=== PATIENT | female | born 1940 | race Caucasian/White ===

== ENCOUNTER → 2018-05-26 | Outpatient (CLI) | payer OTHER ==
[~2018-05-26] MED LIST: ASPIRIN325 PO; B-100 COMPLEX1 EAC1 PO; CELEXA 20 MG TA20 MG PO; HYDROCODON-ACE1 EAC7 PO; NORVASC 5 MG TAB5 MG PO; PRAVACHOL80 MG PO; PROZAC20 MG PO; TRAMADOL 50 MG50 MG PO
== END ==
LOC: NUC 08:43
DX: M47.26 Other spondylosis with radiculopathy, lumbar region (principal); M51.17 Intervertebral disc disorders with radiculopathy, lumbosacral region; M48.07 Spinal stenosis, lumbosacral region; Z96.643 Presence of artificial hip joint, bilateral

== ENCOUNTER → 2018-06-03 | Outpatient (CLI) | payer OTHER ==
[~2018-06-03] VITALS: Ht 167.6 cm; Wt 79.2 kg
[~2018-06-03] MED LIST changes: +AMLODIPINE BESY10 MG PO; +ATORVASTATIN CA40 MG PO
--- NOTE | ~2018-06-03 | HPC ---
[facility] [place] [address] PAIN MANAGEMENT CONSULTATION Name: MARY ENCINAS Room #: REG [facility] Ruddy#: [id number] Admission: 06/03/18 Attend Phys: Vera Lr MD Discharge: Date of : 40 Report #: [id number] THIS REPORT FOR: //name// CC: Shahid Lr DATE OF SERVICE: 06/03/2018 CHIEF COMPLAINT: Back pain in the middle and just below the waistline. HISTORY OF PRESENT ILLNESS: The patient is a 77-year-old female, who has been referred to the pain clinic for evaluation. The patient states that she is having pain and discomfort in the lower portion of her back, is below the waist line. She describes it as constant, sharp, and rates it as an 8/10. She states that the pain is worse with any type of activity. She has tried pain medication and noticed some benefit from that. She has not had back surgery. She notes that the pain that is radiating down the posterior portion of her legs on the left and the right side. She had an MRI, which showed moderate central spinal stenosis at the L4-L5 level. The patient is experiencing pain and discomfort and has desired to undergo an epidural injection to help decrease the pain and discomfort which she is experiencing. She denies any new bowel or bladder dysfunction. She denies any trauma. She has had a left hip replacement and a right hip replacement in the past. PAST MEDICAL HISTORY: She has pneumonia, depression, anemia, hypertension, colon problems, stroke/TIA, and cancer. PAST SURGICAL HISTORY: She has bladder cancer in 2014, left hip replacement, right hip replacement, appendectomy, cataract surgery, and laser cataract removal, right eye. MEDICATIONS: The patient is on Lipitor 40 mg, amlodipine 10 mg, Prozac 20 mg, hydrocodone 5/325 one p.o. p.r.n., vitamin B complex, and tramadol 50 mg p.r.n. ALLERGIES: SULFA CAUSES DIFFICULTY BREATHING. SOCIAL HISTORY: She is retired. She has not worked for the last 10 years. REVIEW OF SYSTEMS: Generally, in good health; fatigue, weakness, wears glasses, cataracts, hearing loss, frequent diarrhea, abdominal pain, TIA, stroke, depression, excessive urination, and anemia. PAIN CLINIC ASSESSMENT AND PQRS: 1. History of osteoarthritis. The patient has some arthritic changes in the lower portion of her back. 2. The patient is not being treated for rheumatoid arthritis. [facility] [address] [place] [address] PAIN MANAGEMENT CONSULTATION Name: MARY ENCINAS Room #: REG [facility].#: [id number] Admission: 06/03/18 Attend Phys: Vera Lr MD Discharge: Date of : 40 Report #: [id number] 3. Pain intensity is 8/10. 4. Fall risk. The patient has not fallen in the last 3 months. 5. Blood thinner. The patient is not on a blood thinning medication. 6. Hypertension. The patient is being treated for hypertension. 7. Opioids greater than 6 weeks. The patient is not on a regimen of opioid medications other than Ultram. 8. Risk assessment, moderate risk at 6-7. 9. Functional assessment tool 38/70. 10. Recreational drug use. The patient denies use of recreational drugs. 11. Tobacco: The patient smokes one-half pack of cigarettes, has smoked for the last 30 years, quit in 11/2017 about 4 months. 12. Alcohol: Frequency of alcohol use of approximately 1-2 beverages per month. PHYSICAL EXAMINATION: GENERAL: The patient is a well-developed white female. She appears her stated age. She is alert and oriented x 3. Affect is appropriate. Speech is fluent. Height is 5 feet 6 inches, weight is 174 pounds, and BMI is 28.2. VITAL SIGNS: Blood pressure is 158/89, pulse is 69, respiratory rate is 18, room air saturation is 96%. HEENT: Normocephalic, atraumatic. Extraocular eye muscles intact. Sclerae nonicteric. Mucous membranes are moist. NECK: Without adenopathy or JVD. LUNGS: Generally clear to auscultation. HEART: Regular rate. ABDOMEN: Nontender. Bowel sounds present. EXTREMITIES: Upper extremity muscle strength is judged to be 5/5 for the major muscle groups in the upper extremity. The patient is without significant scoliosis, kyphosis, or lordosis. The patient has pain and discomfort in the mid portion of her back with pain that is radiating down in the posterior portion of her legs in the L5-S1 dermatomal distribution. Muscle strength is judged to be 5-/5 for the major muscle groups in the lower extremity. LABORATORY DATA: MRI of the lumbar spine dated 05/26/2018: 1. L1-L2: Marked disk narrowing is present with loss of disk space height and disk signal. Diffuse disk bulging is present and mild ligamentum hypertrophy is present. AP diameter is well maintained at 60 mm. Mild neural foraminal narrowing is present without significant nerve root impingement on the right, more prominent neural foraminal narrowing on the left. 2. L2-L3: Mild loss of disk signal and disk space height is present with diffuse disk bulging. AP diameter is well maintained measuring 14 mm centrally. No significant neural foramen narrowing. 3. L3-L4: Loss of disk space height and disk signal was present with AP canal diameter narrowing to 11 mm. Moderate hypertrophic facet changes and ligamentum flavum hypertrophy is present. Mild left neural foraminal narrowing is present. No significant protrusion. [facility] [address] [place] [address] PAIN MANAGEMENT CONSULTATION Name: MARY ENCINAS [facility] [id number] Admission: 06/03/18 Attend Phys: Vera Lr MD Discharge: Date of : 40 Report #: [id number] 4. L4-L5: Mild anterior L4 on L5 is present measuring 2 mm. Disk bulging is present in this examination with severe hypertrophic facet changes and ligamentum flavum hypertrophy narrows the AP canal diameter to 11 mm. Severe bilateral neural foraminal narrowing and lateral recess stenosis present in the superior on the right greater than left. 5. L5-S1: Diffuse disk bulge is present with mild hypertrophic facet changes. AP canal diameter measured 14 mm. Mild diffuse disk bulge with hypertrophic facet changes resulting in mild bilateral neural foraminal narrowing, which is greater on the left than right. IMPRESSION: 1. Lumbar radiculopathy with history of spinal stenosis in the L5-S1 dermatomal distribution. 2. Pneumonia. 3. Depression. 4. Anemia. 5. Hypertension. 6. Colon problems. 7. Stroke/transient ischemic attack. 8. Cancer. RECOMMENDATIONS: We have discussed treatment options with the patient. Risks and benefits of an epidural steroid injection were discussed. Possible complications of the procedure, which could include but are not limited to infection, worsening of pain, no improvement in pain, bleeding, and paralysis were discussed. The patient will return to the pain clinic with the probability of undergoing an epidural steroid injection. We would like to thank you for letting us to participate in her care. We hope she continues to improve. By: [id number] Vera Lr MD /PMT
[2018-06-03 12:30] VITALS: BP 158/89
== END ==
LOC: PAIN 11:04
DX: M54.16 Radiculopathy, lumbar region (principal); M48.07 Spinal stenosis, lumbosacral region; J18.9 Pneumonia, unspecified organism; F32.9 Major depressive disorder, single episode, unspecified; D64.9 Anemia, unspecified; I10 Essential (primary) hypertension; C18.9 Malignant neoplasm of colon, unspecified; C80.1 Malignant (primary) neoplasm, unspecified; G45.9 Transient cerebral ischemic attack, unspecified

== ENCOUNTER → 2018-06-22 | Outpatient (CLI) | payer OTHER ==
[~2018-06-22] VITALS: Ht 167.6 cm; Wt 78.7 kg
--- NOTE | ~2018-06-22 | HPC ---
[facility] [place] [address] PAIN MANAGEMENT CONSULTATION Name: MARY ENCINAS [facility] [id number] Admission: 06/22/18 Attend Phys: Vera Lr MD Discharge: Date of : 40 Report #: [id number] THIS REPORT FOR: //name// CC: Shahid Lr DATE OF SERVICE: 06/22/2018 CHIEF COMPLAINT: Low back pain that goes down into both buttocks and down into both legs. HISTORY: The patient is a 77-year-old female who has been seen in the pain clinic and evaluated. She has pain that has been radiating down into the lower portion of her legs in the posterior section involving her buttocks and calves bilaterally. Rates her pain as 4/10 at this juncture. Notes that medication is success, notes that her pain is exacerbated with activity. Feels that medications can be helpful, has used heat and found that has been beneficial as well. Has pain, which has impacted her ability to engage in activities of daily living. At this juncture, she has returned to the pain clinic for an epidural steroid injection. Denies any bowel or bladder dysfunction. Denies any new trauma. The patient has had a left hip replacement and right hip replacement in the past. ALLERGIES: SULFA CAUSES DIFFICULTY IN BREATHING. MEDICATIONS: Lipitor 40 mg, amlodipine 10 mg, Prozac 20 mg, hydrocodone 5/325 one p.o. p.r.n., vitamin B complex, and tramadol 50 mg p.r.n. PAIN CLINIC ASSESSMENT AND PQRS: 1. Osteoarthritis. The patient has some arthritic changes in the low portion of her back. 2. The patient is not being treated for rheumatoid arthritis. 3. Vital signs; blood pressure 144/97, pulse 77, respiratory rate 16, and room air saturation 98%. 4. Height 5 feet 6 inches, weight 173 pounds, BMI is 28.0. 5. Pain intensity 09/21. 6. Fall risk. The patient has not fallen in the last 3 months. 7. Blood thinner. The patient is not on a blood thinning medication. 8. Hypertension. The patient is being treated for hypertension. 9. Opioids greater than 6 weeks. The patient is not receiving opioid medication on a regular basis. 10. Risk assessment tool, moderate, 11/18 for opioid use. 11. Functional assessment tool, . 12. Recreational drug use. The patient denies use of recreational drugs. 13. Tobacco: The patient smokes one half pack of cigarettes per day and smoked for the last 30 years. We discussed the risks and benefits of smoking. We [address] [address] PAIN MANAGEMENT CONSULTATION Name: MARY ENCINAS [facility] [id number] Admission: 06/22/18 Attend Phys: Vera Lr MD Discharge: Date of : 40 Report #: [id number] explained the benefits of smoking cessation with the patient. 14. Alcohol, the patient drinks 1-2 alcoholic beverages per month. PHYSICAL EXAMINATION: GENERAL: The patient is a well-developed, well-nourished white female. Appears her stated age. She is alert and oriented x 3. Her affect is appropriate. Speech is fluent. HEENT: Normocephalic, atraumatic. Extraocular eye muscles intact. Sclerae nonicteric. Mucous membranes are moist. NECK: Without adenopathy or JVD. LUNGS: Clear to auscultation. HEART: Regular rate. ABDOMEN: Nontender. Bowel sounds present. EXTREMITIES: Upper extremity muscle strength is judged to be 5/5 for the major muscle groups in the upper extremity. The patient without significant scoliosis, kyphosis, or lordosis. The patient has some pain and discomfort with radiation down the lower portion of her back. The pain is radiating down the L5-S1 dermatomal distribution on her legs bilaterally with pain and discomfort in the area of the muscles with cramping. IMPRESSION: 1. Lumbar radiculopathy with history of spinal stenosis at the L5-S1 dermatomal distribution. 2. History of pneumonia. 3. Depression. 4. Anemia. 5. Hypertension. 6. Colon problems. 7. Stroke/transient ischemic attack. 8. Cancer. RECOMMENDATIONS: We discussed treatment options with the patient. Risks and benefits of an epidural steroid injection were again discussed. Possible complications of the procedure, which could include but are not limited to infection, worsening of pain, no improvement in pain were discussed and the patient elects to proceed. PROCEDURE NOTE: The patient was placed in the prone position. Fluoroscopy was used to identify the L5-S1 area. This area had been sterilely prepped with Betadine and infiltrated with 0.25% bupivacaine. Total of 80 mg Depo-Medrol, 40 mg triamcinolone and 2 mL of 0.25% bupivacaine was injected. The patient tolerated the procedure well. There were no complications. She remained in the Pain Clinic for an appropriate amount of time. She will follow up in the future as needed. [address] [address] PAIN MANAGEMENT CONSULTATION Name: MARY ENCINAS Room #: REG [facility] Ruddy#: [id number] Admission: 06/22/18 Attend Phys: Vera Lr MD Discharge: Date of : 40 Report #: [id number] We would like to thank you for letting us participate in her care. We hope she continues to improve. By: [id number] Vera Lr MD /nt
[2018-06-22 09:03] VITALS: BP 144/97
--- NOTE | 2018-06-22 09:09 | NUR ---
Pain Clinic Assessment: 1. History of Osteoarthritis: Not Applicable History of Rheumatoid Arthritis: Not Applicable 2. Height: 5 ft. 6 in. 167.6 cm. Weight: 173.6 lb. oz. 78.744 kg. Patient's BMI: 28.0 3. Vital Signs: BP: 144/97 Pulse: 77 Resp: 16 Temp: 02 Sat: 98 ECG Mon: 4. Pain Intensity: 4 5. Fall Risk: Dizziness: N Needs help standing or walking: N Fallen in the last 3 months: N Fall risk comments: 6. Patient on Blood Thinner: None 7. History of Hypertension: Y 8. Opioid Therapy greater than 6 weeks: N Opiate Contract Signed: 9. Risk Assessment Tool Provided: MODERATE RISK 11/18 10. Functional Assessment Tool: 11. Recreational Drug Use: Never Drug Type: Tobacco Use: Current Every Day Smoker Tobacco Type: Cigarettes Amount or Packs/day: 1/2 PACK DAY How Many Years: 30 Alcohol Use: Yes Frequency: Monthly Quant: 1-2
== END | disposition home or self-care (01) ==
LOC: PAIN 06-17 07:17
DX: M54.16 Radiculopathy, lumbar region (principal); G89.29 Other chronic pain; I10 Essential (primary) hypertension; D64.9 Anemia, unspecified; K63.89 Other specified diseases of intestine; F32.9 Major depressive disorder, single episode, unspecified; Z86.73 Personal history of transient ischemic attack (TIA), and cerebral infarction without residual deficits; Z87.01 Personal history of pneumonia (recurrent); Z88.2 Allergy status to sulfonamides; Z79.899 Other long term (current) drug therapy; Z79.891 Long term (current) use of opiate analgesic